=== PATIENT | male | born 1980 | race Caucasian/White ===

== ENCOUNTER 2019-08-08 16:39 | Inpatient (IN) | payer OTHER ==
[~2019-08-08] VITALS: Ht 180.3 cm; Wt 76.7 kg
[2019-08-08 16:43] VITALS: BP 127/87
[2019-08-08 17:09] LABS: ABSOLUTE MONOCYTES 0.6 thou/uL (0.0-1.2); ABSOLUTE NEUTROPHILS 3.8 thou/uL (1.6-8.1); BASOPHILS 0.6 %; EOSINOPHILS 0.5 %; HEMATOCRIT 39.7 % (42.0-52.0); HEMOGLOBIN 13.7 gm/dL (14.0-18.0); LYMPHOCYTES 18.9 %; MCH 32.6 pg (26.0-34.0); MCHC 34.4 g/dL (28.0-37.0); MCV 94.6 fL (80.0-100.0); MONOCYTES 11.4 %; MPV 8.1 fl. (7.2-11.1); NUCLEATED RBCS 0 /100WBC; PLATELET COUNT* 170 thou/uL (150-400); POLYS 68.6 %; RDW-CV 12.7 % (10.5-14.5); WBC 5.5 thou/uL (4.0-11.0)
[2019-08-08 17:18] LABS: INR 1.1; PROTIME 10.8 Seconds (9.20-11.50)
[2019-08-08 17:25] LABS: CALCIUM 9.4 mg/dL (8.5-10.1); CREATININE 0.8 mg/dL (0.6-1.3); POTASSIUM 3.7 mmol/L (3.5-5.1)
[2019-08-08 17:30] LABS: ALBUMIN 4.1 g/dL (3.4-5.0); TOTAL BILIRUBIN 0.6 mg/dL (<0.1-1.0); TOTAL PROTEIN 6.9 g/dL (6.4-8.2)
[2019-08-08 17:57] LABS: URINE BILIRUBIN NEGATIVE (Negative); URINE BLOOD NEGATIVE (Negative); URINE CLARITY CLEAR; URINE COLOR YELLOW; URINE GLUCOSE-RANDOM NEGATIVE (Negative); URINE KETONES NEGATIVE (Negative); URINE LEUKOCYTES-REFLEX NEGATIVE (Negative); URINE NITRITE-REFLEX NEGATIVE (Negative); URINE PROTEIN NEGATIVE (Negative); URINE SPECIFIC GRAVITY <= 1.005 (1.005-1.030); URINE UROBILINOGEN 0.2 E.U./dl (0.2-1.0)
[2019-08-08 18:19] VITALS: BP 125/82
[2019-08-08] MEDS ORDERED: ALLEGRA-D 12 H1 EAC1 PO (18:53)
--- NOTE | 2019-08-08 19:07 | NUR ---
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
[2019-08-08 20:00] VITALS: BP 122/83
[2019-08-08 20:40] LABS: HEMATOCRIT 38.6 % (42.0-52.0); HEMOGLOBIN 13.2 gm/dL (14.0-18.0); MCH 32.5 pg (26.0-34.0); MCHC 34.3 g/dL (28.0-37.0); MCV 94.8 fL (80.0-100.0); MPV 8.1 fl. (7.2-11.1); RBC 4.07 mil/uL (4.50-6.00); RDW-CV 12.4 % (10.5-14.5); WBC 5.2 thou/uL (4.0-11.0)
[2019-08-08 21:00] VITALS: BP 111/76
[2019-08-08 22:00] VITALS: BP 113/72
[2019-08-08 23:00] VITALS: BP 112/72
[2019-08-09] VITALS (24 sets, daily range): BP systolic 111–133; BP diastolic 67–97
[2019-08-09 00:40] LABS: HEMATOCRIT 37.3 % (42.0-52.0); HEMOGLOBIN 12.7 gm/dL (14.0-18.0); MCH 32.7 pg (26.0-34.0); MCHC 34.1 g/dL (28.0-37.0); MCV 95.9 fL (80.0-100.0); MPV 8.3 fl. (7.2-11.1); RBC 3.89 mil/uL (4.50-6.00); RDW-CV 12.5 % (10.5-14.5)
[2019-08-09 04:13] LABS: ALBUMIN 3.4 g/dL (3.4-5.0); CALCIUM 8.3 mg/dL (8.5-10.1); CREATININE 0.8 mg/dL (0.6-1.3); MAGNESIUM 1.9 mg/dL (1.8-2.4); POTASSIUM 4.1 mmol/L (3.5-5.1); TOTAL BILIRUBIN 0.8 mg/dL (<0.1-1.0); TOTAL PROTEIN 5.6 g/dL (6.4-8.2)
--- NOTE | 2019-08-09 05:40 | NUR ---
ASSUMED CARE AT 1900H, ON ROOM AIR AND TOLERATED. NO EPISODE OF HEMATEMESIS NOR BLOODY STOOL.KEPT NPO POST MIDNIGHT.NO DISTRESS NOTED.CONTINUE MONITORING AND TOWARDS GOAL.
--- NOTE | 2019-08-09 06:42 | NUR ---
RECIEVED CALL FROM GI DOCTOR THIS MORNING WITH ORDERS AND CARRIED OUT. PT FOR EGD AT 10AM TODAY. STILL FOR CONSENT.
[2019-08-09 08:33] LABS: HEMATOCRIT 37.7 % (42.0-52.0); HEMOGLOBIN 12.8 gm/dL (14.0-18.0); MCH 32.7 pg (26.0-34.0); MCV 96.3 fL (80.0-100.0); MPV 8.4 fl. (7.2-11.1); RBC 3.92 mil/uL (4.50-6.00); RDW-CV 12.5 % (10.5-14.5); WBC 4.7 thou/uL (4.0-11.0)
--- NOTE | 2019-08-09 10:02 | EKG ---
[place] [address] ELECTROCARDIOGRAM REPORT Name: ADALGISA THEODORE Room: [address] ADM IN [facility]#: [id number] Admission: 08/08/19 Attend Phys: Elaine Elena MD Discharge: Date of : 84 Report #: [id number] THIS REPORT FOR: //name// [facility] ED Test Date: 2019-08-08 Test Time: 16:47:27 Pat Name: ADALGISA THEODORE Department: Room: 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
--- NOTE | 2019-08-09 12:35 | NUR ---
MET WITH PT IN ROOM; INTRODUCED CM SERVICES;COMPLETED ASSESSMENT. PATIENT PROVIDES DR. DEWAYNE HOWARD HIS PCP. ANSWERED ALL QUESTIONS. REMAIN AVAILABLE TO PATIENT NECESSARY.
--- NOTE | 2019-08-09 18:17 | NUR ---
THIS [facility] ASSUMED CARE OF PT AFTER RECEIVING SHIFT REPORT AT 0700. 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
[2019-08-10] VITALS (13 sets, daily range): BP systolic 110–123; BP diastolic 64–82
[2019-08-10 03:11] LABS: HEMATOCRIT 40.6 % (42.0-52.0); HEMOGLOBIN 13.8 gm/dL (14.0-18.0); MCH 32.7 pg (26.0-34.0); MCV 96.2 fL (80.0-100.0); RBC 4.22 mil/uL (4.50-6.00); RDW-CV 12.2 % (10.5-14.5); WBC 7.7 thou/uL (4.0-11.0)
[2019-08-10 03:35] LABS: ALBUMIN 3.7 g/dL (3.4-5.0); CALCIUM 9.2 mg/dL (8.5-10.1); CREATININE 0.7 mg/dL (0.6-1.3); POTASSIUM 3.6 mmol/L (3.5-5.1); TOTAL BILIRUBIN 0.6 mg/dL (<0.1-1.0); TOTAL PROTEIN 6.5 g/dL (6.4-8.2)
--- NOTE | 2019-08-10 05:58 | NUR ---
VSS. PT HAS DENIES PAIN, NAUSEA, AND SOA THROUGHOUT THE SHIFT. NO EVIDENCE OF GI BLEEDING SEEN TONIGHT. ASSISTED TO STAND X1, NO DIZZINESS REPORTED. PT TOLERATING PO INTAKE. CALL LIGHT WITHIN REACH.
[2019-08-10] MEDS ORDERED: PANTOPRAZOLE SO40 M1 PO (09:04)
[2019-08-10] MEDS ORDERED: UNICOMPLEX M TA1 TA1 PO (09:04)
--- NOTE | 2019-08-10 10:40 | NUR ---
PT A&O X4. VSS. NO S/S OF BLEEDING. DISCHARGE EDUCATION GIVEN. PT LEFT THE UNIT AT 1020 WITH HIS PARENTS.
[2019-08-11 02:06] LABS: HEPATITIS B SURFACE AG Negative (Negative)
--- NOTE | 2019-08-13 16:50 | CON ---
[address] [address] CONSULTATION Name: KINGSAVITA Room: [address] IN ..#: [id number] Admission: 08/08/19 Attend Phys: Elaine Elena MD Discharge: 08/10/19 Date of : 84 Report #: [id number] THIS REPORT FOR: //name// CC: Dr. Ray FAM physician/PCP Elaine Schultz Brando DATE OF SERVICE: 08/09/2019 REFERRING PHYSICIAN: Elaine Elena MD REASON FOR CONSULTATION: Hematemesis. IMPRESSION: 1. Overt hematemesis with history of reflux and nonsteroidal use -- problems related to the same. 2. Chronic alcohol abuse with history of alcoholism in his father -- no evidence by labs or CT scan of portal hypertension. 3. Mild anemia of unclear etiology. 4. Personal history of colon polyps with the patient's last examination being done in 2013. RECOMMENDATIONS: 1. We will proceed with upper endoscopy later today. I have discussed the nature, risks, benefits, and alternatives with the patient as well and he is agreeable to the same. 2. We will request records from [facility] where he underwent both upper and lower endoscopy, and I will request those records plus pathology results for review. 3. Eventually, he will need a repeat colonoscopy because he is due at this time. However, his primary problem at this point in time is hematemesis. HISTORY OF PRESENT ILLNESS: The patient is a pleasant 38-year-old white male who presented to the emergency room with complaints of lightheadedness, dizziness, and overt hematemesis. 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 He had overt hematemesis. This was followed by a short loss of consciousness and immediately following that, he had some lightheadedness and dizziness as well as some visual disturbances as if he blacked out. He has never had anything like this in the past and was not having any problems with any nausea or vomiting prior to the same. With his first vomiting, he threw up blood. He has had some problem with reflux issues, but nothing been severe. He denies dysphagia, odynophagia, or postprandial pain. He does take nonsteroidals on a regular [place] [address] CONSULTATION Name: ADALGISA THEODORE Room: [address]#: [id number] Admission: 08/08/19 Attend Phys: Elaine Elena MD Discharge: 08/10/19 Date of : 84 Report #: [id number] Aleve. He does drink 4-5 beers during the week and quite a bit on the weekend. He has family history of alcoholism. He has undergone previous studies of his upper GI tract in the past, last was in 2013, at which time it was being done because he was having some rectal bleeding. At that time, he was found to have hemorrhoids and apparently polyps. I was contacted by the Emergency Room physician, Dr. Wong, and recommended because of his history that he get a CT scan and place him empirically on octreotide and Protonix. He is now here and doing well. He denies any further bleeding. ALLERGIES: None. MEDICATIONS AT HOME: Include nonsteroidals p.r.n. He is otherwise healthy. He denies any history of cardiopulmonary or endocrine problems. SOCIAL HISTORY: The patient is . He does have a previous smoking history. He quit. As I mentioned above, he drinks alcohol on a regular basis. FAMILY HISTORY: Remarkable for alcoholism, but no history of cirrhosis. PHYSICAL EXAMINATION: GENERAL: Pleasant 38-year-old gentleman who does not appear to be in no major distress. CARDIOPULMONARY: Revealed a regular rate and rhythm. LUNGS: Clear. ABDOMEN: Soft and not particularly tender. No rebound or guarding noted. LABORATORY DATA: From admission revealed a white count of 5.5, hemoglobin 13.7, and platelet count 170,000. MCV is 94.6 and RDW 12.7. His sodium is 139, potassium 3.7, chloride 103, bicarbonate is 28, his BUN is 11, and creatinine 0.8. His total bilirubin 0.6, alkaline phosphatase 51, AST 13, and ALT 18. His albumin is 4.1. His INR is 1.1. CT scan of the abdomen and pelvis with IV contrast revealed a normal-appearing liver, spleen, pancreas, adrenals, gallbladder, and kidneys. He did have some low-density fluid throughout the small bowel with few small bowel air-fluid levels within the proximal small bowel, but no evidence for obvious bowel wall thickening or mesenteric inflammatory change. There is no evidence to suggest a small bowel obstruction. DISCUSSION: At the present time, the patient has some episodes of overt hematemesis. We will proceed with upper endoscopy today and make further [address] [address] CONSULTATION Name: ADALGISA THEODORE Room: 001-P [facility] IN .R.#: [id number] Admission: 08/08/19 Attend Phys: Elaine Elena MD Discharge: 08/10/19 Date of : 84 Report #: [id number] recommendations thereafter. I have discussed the plans with the patient as well and he is agreeable to the same. <ELECTRONICALLY SIGNED> By: Moy Wilkinson DO 08/13/19 1650 1715 [id number] Wilkinson DO /nt
== END 2019-08-10 10:20 | disposition home or self-care (01) | DRG 379 ==
LOC: M.ERS 16:39 → M.TBA-ER 17:41 → M.ICU 17:41 → M.TBA-ER 18:02 → M.ICU 18:32
PROVIDERS: Family Medicine; Internal Medicine Gastroenterology; ADMIT Internal Medicine
PROC: 0DJ08ZZ Inspection of Upper Intestinal Tract, Via Natural or Artificial Opening Endoscopic (ICD-10-PCS; principal; 2019-08-09)
DX: K92.2 Gastrointestinal hemorrhage, unspecified (principal); R55 Syncope and collapse; K44.9 Diaphragmatic hernia without obstruction or gangrene; F10.10 Alcohol abuse, uncomplicated; D64.9 Anemia, unspecified; Z87.891 Personal history of nicotine dependence